=== PATIENT | male | born 1980 | race Caucasian/White ===

== ENCOUNTER 2020-12-30 12:59 | Emergency (ER) | payer MEDICAID ==
[~2020-12-30 12:59] MED LIST: CEPH-357 PO; NAPR-56 PO; NO HOME MEDS
== END 2020-12-30 19:11 | disposition left against medical advice (07) ==
LOC: ER 13:01
DX: Z53.21 Procedure and treatment not carried out due to patient leaving prior to being seen by health care provider (principal)

== ENCOUNTER 2021-04-13 05:59 | Emergency (ER) | payer MEDICAID ==
[~2021-04-13] VITALS: Ht 188 cm; Wt 86.4 kg
[2021-04-13 06:19] VITALS: BP 156/104
[2021-04-13] MEDS ORDERED: ibuprofen 200mg tablet PO ONE (06:45)
[2021-04-13] MEDS ORDERED: NEOM10DR45 LEFT EAR (06:51)
== END 2021-04-13 07:07 | disposition home or self-care (01) ==
LOC: ER 05:59
DX: H60.92 Unspecified otitis externa, left ear (principal); F32.9 Major depressive disorder, single episode, unspecified; F15.10 Other stimulant abuse, uncomplicated; Z59.00 Homelessness unspecified; F17.200 Nicotine dependence, unspecified, uncomplicated; Z87.442 Personal history of urinary calculi
CPT/HCPCS: 99283

== ENCOUNTER 2024-06-07 15:26 | Emergency (ER) | payer MEDICAID ==
[~2024-06-07] VITALS: Ht 185.4 cm; Wt 75.0 kg
[~2024-06-07 15:26] MED LIST changes: +IBUP-1985 PO
[2024-06-07 15:47] VITALS: BP 150/87; PULSE 77; RESP 18; TEMP 97.8; O2SAT 98
[2024-06-07] MEDS: ibuprofen tablet 400 MG TABLET PO ONE (17:58)
== END 2024-06-07 18:23 | disposition home or self-care (01) ==
LOC: ER 15:27
DX: M25.552 Pain in left hip (principal); M25.551 Pain in right hip; L30.4 Erythema intertrigo; F32.A Depression, unspecified; Z87.442 Personal history of urinary calculi; F15.90 Other stimulant use, unspecified, uncomplicated
CPT/HCPCS: 99282

== ENCOUNTER 2025-04-21 00:25 | Emergency (ER) | payer MEDICAID ==
[~2025-04-21 00:25] MED LIST changes: -IBUP-1985 PO; +IBUP600T52 PO
[2025-04-21 00:28] VITALS: BP 127/78; PULSE 77; TEMP 96.3; O2SAT 99
[2025-04-21 00:41] VITALS: RESP 16
--- NOTE | 2025-04-21 01:21 | Physician Documentation ---
History of Present Illness ~ Chief Complaint: Back Pain Stated Complaint: LOWER BACK PAIN Time Seen by MD: 01:20 Primary Medical Doctor: MAX ELLIOTT Mode of Arrival: POV, Ambulatory HPI Patient presents to the emergency room for evaluation of what he believes is an abscess to his buttock. Onset of symptoms this past week. Also has a bump in his right groin area. No fevers Medication Reconciliation Allergies: Coded Allergies: No Known Allergies (Unverified , 06/07/24) Scheduled Cephalexin Monohydrate* (Keflex*), 1 CAP PO TID Ibuprofen (Ibuprofen), 1 TAB PO Q8H Naproxen (Naproxen), 500 MG PO Q12H Miscellaneous Medications Home Med List (No Home Medications), (Reported) Past Medical History Past Medical History: No Pertinent History, Kidney Stones, Depression Past Surgical History: no surgical history Alcohol Use: Occasionally Drug Use: methamphetamine Lives In: Homeless Review of Systems ROS All review of systems negative except as per HPI Physical Exam Physical Exam Vital Signs: Temperature: 96.3, Source: Temporal, Heart Rate: 77, Respiratory Rate: 16, BP: 127/78, Pulse Oximetry: 99 Physical Exam General: Patient is awake, alert, oriented x4 in no acute distress Head: Normocephalic and atraumatic. Eyes: Conjunctival normal. EOMI. PERRL. ENT: Mucous membranes moist. Neck: Supple, trachea is midline. Chest: Clear to auscultation bilaterally without rales, rhonchi, or wheezes. There is no accessory muscle use or retractions. Cardiac: RRR without murmurs, gallops, or rubs. Abd: Soft, nondistended, nontender, with normoactive bowel sounds. No guarding, rebound, or rigidity. Right inguinal lymph node noted. Mobile measuring 2 x 2 cm Back: Pilonidal abscess noted measuring 3 x 3 cm with fluctuance. Procedures Procedures Incision and drainage: Status post informed verbal consent patient was sterilely cleaned and draped with Betadine. 3 cc of lidocaine with epinephrine was injected into area of patient's abscess. 11. Blade utilized to perform incision and drainage of patient's abscess. Star-shaped incision performed with de loculation with sterile probe. Expression of a proximally 1 cc of blood and pus. No packing placed. Bandage placed along with antibiotic ointment. Total time of procedure 10 minutes. Patient tolerated procedure well without complication. Progress Results/Orders Results/Orders Completed Orders - SAMMY BROWN MD Ibuprofen Tablet (Motrin Tablet) (04/21/25 01:35) Acetaminophen 325mg Tablet (Tylenol Tabl (04/21/25 01:35) Ondansetron Disint. Tablet (Zofran Odt T (04/21/25 01:35) Sulfamethox/Trimetho. Ds Tab (Septra Ds (04/21/25 01:35) Vital Signs 04/21/25 04/21/25 00:28 00:41 Temp 96.3 Pulse 77 Resp 15 16 B/P (MAP) 127/78 Pulse Ox 99 Medical Decision Making Additional information obtaine: old records Findings Patient presented to the emergency room with report of abscess to his buttock area as per HPI. Differentials include but are not limited to abscess, ep idermal inclusion cyst, tumor, blister. Symptoms consistent with pilonidal cyst and incision and drainage performed. As patient is homeless and given area of infection I will place him on antibiotics. Differential Dx:Considerations: Bowel obstruction Departure Disposition: HOME / SELF CARE / HOMELESS Impression: Primary Impression: Pilonidal abscess Condition: Stable Discharge Instructions: Pilonidal Cyst Drainage, Care After Referrals: NO PRIMARY CARE PROVIDER (PCP) Prescriptions Sulfamethoxazole/Trimethoprim (Septra Ds Tab) 800 Mg/160 Mg Tablet 1 TAB PO Q12H for 10 Days, #20 TAB Prov: SAMMY BROWN MD 04/21/25 Signature Scribe Signature: No scribe Attestation: The note accurately reflects work and decisions made by me.Sammy Brown MD 04/21/25 01:52 SAMMY BROWN MD Apr 21, 2025 01:21
[2025-04-21] MEDS: sulfamethoxazole/trimethoprim DS (800/160mg) tablet PO ONE (01:47)
[2025-04-21] MEDS: ibuprofen tablet 400 MG TABLET PO ONE (01:48)
[2025-04-21] MEDS: ondansetron 4mg rapidly disintigrating tab PO ONE (01:48)
[2025-04-21] MEDS ORDERED: SULF-16 PO (01:52)
[2025-04-21] MEDS: bacitracin 15gm ointment TP ONE (02:00)
== END 2025-04-21 02:03 | disposition home or self-care (01) ==
LOC: ER 00:26
DX: L05.01 Pilonidal cyst with abscess (principal); F15.90 Other stimulant use, unspecified, uncomplicated; F32.A Depression, unspecified; Z59.00 Homelessness unspecified; Z72.89 Other problems related to lifestyle; Z87.442 Personal history of urinary calculi; Z79.899 Other long term (current) drug therapy
CPT/HCPCS: 10080; 99284; A6258; A6407